=== PATIENT | female | born 1935 | race Caucasian/White ===

== ENCOUNTER 2017-09-24 11:59 | Emergency (ER) | payer OTHER | END 2017-09-24 15:55 | disposition home or self-care (01) | LOC: D.ER 11:59 | DX: S01.81XA Laceration without foreign body of other part of head, initial encounter (principal); W01.0XXA Fall on same level from slipping, tripping and stumbling without subsequent striking against object, initial encounter; Y93.89 Activity, other specified; Y92.410 Unspecified street and highway as the place of occurrence of the external cause; I10 Essential (primary) hypertension ==